=== PATIENT | female | born 1985 | race Caucasian/White ===

== ENCOUNTER → 2019-08-01 12:30 | Outpatient (CLI) | payer SELFPAY ==
[2019-08-01 15:19] LABS: Chlamydia Trachomatis by PCR Negative (Negative); Neisserai gonorrhoeae by PCR Negative (Negative); Probe Check PASS; Sample Adequacy Control PASS; Specimen Processing Control PASS
== END ==
PROVIDERS: Family Provider Obstetrics & Gynecology; PCP Obstetrics & Gynecology; Visit Provider Advanced Practice Midwife
DX: Z11.3 Encounter for screening for infections with a predominantly sexual mode of transmission (principal); Z32.01 Encounter for pregnancy test, result positive
CPT/HCPCS: 87491; 87591

== ENCOUNTER → 2019-08-17 11:36 | Outpatient (CLI) | payer SELFPAY ==
[2016-02-15 15:44] VITALS: BMI 22.0
[2019-08-17 12:39] LABS: Absolute Neutrophil Count 3.6 X10^3/uL (2.0-7.7); Basophil# 0.03 X10^3/uL; Basophil% 0.6 % (0-1); Eosinophil# 0.05 X10^3/uL; Hematocrit 36.7 % (37-47); Hemoglobin 12.3 g/dL (12.0-15.0); Lymphocyte % 21.6 % (19-41); Mean Corp Hgb Conc 33.5 g/dL (32-36); Mean Corpuscular Hgb 30.7 pg (27.0-32.0); Mean Corpuscular Volume 91.5 fL (81-99); Monocyte# 0.34 X10^3/uL; Monocyte% 6.7 % (0-10); NRBC Flagged by Analyzer 0 % (0-5); Neutrophil # 3.56 X10^3/uL (2.7-7.7); Neutrophil % 69.9 % (47-70); Platelet Count 148 K/mm3 (150-450); RBC Distribution Width CV 13.5 % (11.6-14.6); RBC Distribution Width SD 45.8 fl (35.1-43.9); Red Blood Count 4.01 M/mm3 (4.2-5.4); White Blood Count 5.1 K/mm3 (4.4-11.0)
[2019-08-17 12:56] LABS: Thyroid Stim Hormone (TSH) 1.72 uIU/mL (0.358-3.74)
[2019-08-17 13:35] LABS: HIV - WCH Non-Reactive (Nonreactive); Hepatitis B Surface Antigen Non-Reactive (Nonreactive); Hepatitis C Antibody Non-Reactive (Nonreactive); Rubella IgG 71.1 IU/mL
[2019-08-17 17:16] LABS: Color, Urine Straw (Yellow); Glucose, Dipstick Normal (Normal); Ketone-Dipstick Negative (Negative); Leukocyte Esterase-Dipstick Negative /ul (Negative); Nitrite-Dipstick Negative (Negative); Occult Blood-Urine Negative /ul (Negative); Protein-Dipstick Negative (Negative); Specific Gravity, Urine 1.005 (1.002-1.030); Urine Bilirubin Dipstick Negative (Negative); Urine Clarity Clear (Clear); Urine Urobilinogen Normal (Normal)
[2019-08-24 02:20] LABS: Prenatal RPR NONREACTIVE (NONREACTIVE)
== END ==
PROVIDERS: Family Provider Obstetrics & Gynecology; PCP Obstetrics & Gynecology; Referring Provider Advanced Practice Midwife; Visit Provider Advanced Practice Midwife
DX: Z34.81 Encounter for supervision of other normal pregnancy, first trimester (principal)
CPT/HCPCS: 36415; 81002; 84443; 85025; 86703; 86762; 86803; 87340

== ENCOUNTER → 2020-01-30 | Outpatient (CLI) | payer SELFPAY ==
[2016-02-15 15:44] VITALS: BMI 22.0
[2020-01-30 17:43] LABS: Hematocrit 30.1 % (37-47); Mean Corp Hgb Conc 33.2 g/dL (32-36); Mean Corpuscular Hgb 31.3 pg (27.0-32.0); Mean Corpuscular Volume 94.1 fL (81-99); Platelet Count 139 K/mm3 (150-450); RBC Distribution Width CV 13.2 % (11.6-14.6); RBC Distribution Width SD 45.2 fl (35.1-43.9); White Blood Count 5.6 K/mm3 (4.4-11.0)
== END | disposition home or self-care (01) ==
PROVIDERS: Visit Provider Obstetrics & Gynecology
DX: Z34.83 Encounter for supervision of other normal pregnancy, third trimester (principal)
CPT/HCPCS: 85027

== ENCOUNTER → 2020-03-01 13:50 | Outpatient (CLI) | payer SELFPAY ==
[2016-02-15 15:44] VITALS: BMI 22.0
== END ==
PROVIDERS: Referring Provider Obstetrics & Gynecology; Visit Provider Obstetrics & Gynecology
DX: Z36.85 Encounter for antenatal screening for Streptococcus B (principal)
CPT/HCPCS: 87081

== ENCOUNTER → 2020-03-15 14:23 | Outpatient (CLI) | payer SELFPAY | PROVIDERS: Visit Provider Obstetrics & Gynecology | DX: Z11.59 Encounter for screening for other viral diseases (principal) | CPT/HCPCS: 87635; G2023; U0003 ==

== ENCOUNTER 2020-03-28 01:00 | Inpatient (IN) | payer SELFPAY ==
[2020-03-28] VITALS (24 sets, daily range): BP systolic 103–131; BP diastolic 51–77; PULSE 53–77; RESP 16; TEMP 36.7–38.3; O2SAT 99; BMI 21.6
[2020-03-28] MEDS: Lactated Ringers 1,000 ML 50 ML IV (01:25)
[2020-03-28 01:52] LABS: Absolute Lymphocyte Count 1.35 X10^3/uL (0.83-4.51); Absolute Neutrophil Count 6.4 X10^3/uL (2.0-7.7); Basophil# 0.03 X10^3/uL; Basophil% 0.4 % (0-1); Eosinophil# 0.04 X10^3/uL; Eosinophils% 0.5 % (0-5); Hematocrit 35.2 % (37-47); Hemoglobin 11.1 g/dL (12.0-15.0); Lymphocyte # 1.35 X10^3/ul (4.0); Lymphocyte % 15.8 % (19-41); Mean Corp Hgb Conc 31.5 g/dL (32-36); Mean Corpuscular Hgb 29.3 pg (27.0-32.0); Mean Corpuscular Volume 92.9 fL (81-99); Mean Platelet Vol. 10.6 fl (6.2-12.0); Monocyte# 0.68 X10^3/uL; NRBC Flagged by Analyzer 0 % (0-5); Neutrophil # 6.42 X10^3/uL (2.7-7.7); Neutrophil % 75.1 % (47-70); Platelet Count 110 K/mm3 (150-450); RBC Distribution Width CV 13.7 % (11.6-14.6); RBC Distribution Width SD 46.5 fl (35.1-43.9); Red Blood Count 3.79 M/mm3 (4.2-5.4); White Blood Count 8.5 K/mm3 (4.4-11.0)
--- NOTE | 2020-03-28 02:00 | PCM.HP.OB ---
- Problem List (1) 40 weeks gestation of Status: Acute History Date of Admission: 12/28/12 Final DAI: 03/22/20 Final DAI Source: US <20 weeks Gestational age: 40 Weeks and 6 Days History of this : This is a 34 year-old, G [4], P [3], at 40 weeks gestational age. Allergies No Known Allergies Allergy (Verified 03/28/20 01:34) Home Medications: Home Medications Folic Acid 0.8 mg PO DAILY 11/30/14 Vits [Prenatabs FA ] 1 tablet PO DAILY 11/30/14 Smoking Status: Never smoker Alcohol: None Number of Fetus(es): 1 NST - FHR Rate Baby A Baseline: 130 Variability:: Moderate Accelerations:: 15 x 15 Decelerations:: None NST Reactive:: Yes FHR Category:: Category I Uterine Activity:: 2-5m History Past Pregnancies: PRIOR DELIVERY HISTORY DEL DATE GEST LAB WT LB WT OZ TYPE ANES LABOR TX 13 Nov 15 39 18 7 13 Vag Local No 13 Dec 13 40 2 7 10 Vag None No 17 Nov 28 41 14 7 13 Vag Epidural No Labs: Mom's Problem List Problem Status Onset Code 40 weeks gestation of Acute Z3A.40 Mom's Labs & Results 03/28/20 03/28/20 03/28/20 01:38 01:38 02:09 WBC 8.5 RBC 3.79 L Hgb 11.1 L Hct 35.2 L MCV 92.9 MCH 29.3 MCHC 31.5 L RDW Std Deviation 46.5 H RDW Coeff of Esthela 13.7 Plt Count 110 L MPV 10.6 Immature Gran % (Auto) 0.200 Neut % (Auto) 75.1 H Lymph % (Auto) 15.8 L Montague % (Auto) 8.0 Eos % (Auto) 0.5 Baso % (Auto) 0.4 Absolute Neuts (auto) 6.4 Absolute Lymphs (auto) 1.35 Nucleated RBC % 0 COVID-19 ([facility]) Not Detected Blood Type O POSITIVE Antibody Screen NEGATIVE Course Did the patient receive Yes care? Labs Blood Type: O RH: POSITIVE RPR/VDRL/Syphilis Nonreactive Rubella status Immune HbSAg Negative Date Done: 08/17/19 Chlamydia Negative Gonorrhea Negative HIV/AIDS Non-Reactive Group B Strep: Negative Current Obstetrical History Gestational Diabetes No Incompetent Cervix No Infertility No IUGR No Macrosomia No Hypertension/Pre-eclampsia No Placenta Previa/Abruption No PTL/PROM No Uterine anomaly No Oligohydramnios No: low side of normal Polyhydramnios No Multiple gestation No Past Medical History Asthma Yes: uses essential oils Diabetes No Hypertension No Heart disease No Mitral valve prolapse No Neurologic/Seizure disorder/ No Migraines Kidney disease No Liver disease No Varicosities Yes Clotting disorders/Hx of DVT No Thyroid Dysfunction No Other medical diseases No Psychiatric disorders No Major trauma No Abnormal PAP smear No Sleep apnea No Mammogram in the last 2 years No Social History Marital Status: Alleged father Kurtis Laguna Hx Smoking No Smoking Status Never smoker How long have you used pt denies substances (years)? Expected Infant Delivery Method: Spontaneous Vaginal Number of Visits: 12 Review of Systems Constitutional: Denies: Chills, Fever, Weight Change HEENT: Denies: Head Aches, Sinus Congestion, Sinus Drainage Cardiovascular: Denies: Chest Pain, Palpitations Respiratory: Denies: Cough, Shortness of breath at rest, Sputum production Gastrointestinal: Denies: Abdominal Pain, Nausea, Vomiting Genitourinary: Denies: Dysuria Musculoskeletal: Denies: Joint Pain, Joint Tenderness Skin: Denies: Rash, Wounds Neurological: Denies: Numbness, Tingling, Focal weakness Psychiatric: Denies: Anxiety, Depression, Homicidal Ideations, Suicidal Ideations Hematologic/ Lymphatic: Denies: Easy Bruising, Easy Bleeding Physical Exam Vitals: Vital Signs Temp Pulse BP Pulse Ox 98.9 F 60 117/59 L 99 03/28/20 03:26 03/28/20 03:26 03/28/20 03:26 03/28/20 02:19 General: Alert, Oriented x3, No apparent distress HEENT: Atraumatic, Normocephalic. 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 Negative for: Vulvar lesions Estimated gestational size: Appropriate for gestational size Presentation: Cephalic Cervix Dilation (cm): 7 Station: -2 Effacement (%): 80 Assessment/Plan All Active Problems 40 weeks gestation of (Acute) This is a 34 year-old, G [4], P [3], at 40 weeks gestational age. NST Category I SVE 7/80/-2 UC 2-5m Admit for active Labor Expect
[2020-03-28] MEDS: Oxytocin 30 units/NS 500 ml 30 UNITS/500 ML IV.SOLN 334 UNITS IV (04:25)
[2020-03-28] MEDS: Methylergonovine 0.2 MG/ML Ampul IM (04:26)
[2020-03-28] MEDS: miSOPROStol 200 MCG Tablet 1000 MCG RECTAL (04:32)
--- NOTE | 2020-03-28 04:42 | PCM.OPRPT ---
Problem List (1) 40 weeks gestation of Status: Acute Vaginal Delivery Maternal Presentation: Active Labor Amniotic Membrane Rupture Type: Artificial Rupture of Membrane time: 032 Amniotic Fluid Description: Clear Final DAI: 03/22/20 Gestational age: 40 Weeks and 6 Days Date of Procedure: 03/28/20 Pre-Operative Diagnosis: labor Post-Operative Diagnosis: S/P Surgery/ Procedure Performed: Spontaneous Vaginal Delivery Type of Anesthesia: None Description of Procedure: Patient complete /+2 at 0830. Patient pushed well for one hour to deliver head in OA over swollen vaginal tissue. Loose nuchal x1 reduced at perineum. Shoulders delivered spontaneously followed by body.The male was placed on the maternal abdomen and further attended by nursery personnel with bulb suction and stimulation. The cord was doubly clamped then cut by FOB under CNM supervision at approximately 3 minutes of life. Cod blood collected. IV Pitocin started per protocol. With gentle cord traction spontaneous delivery of placenta. Upon inspection placenta noted to appear intact with a 3 vessel cord. Fundal massage given, noted to be firm,U/3 and midline. With blood loss, IM Methergine and 1000mcg of Cytotec given rectal. First degree perineal laceration noted. Repaired with 3.0 vicryl with a single stitch. EBL 450. Sponge count correct x2. Apgars 8/9. Presentation: Vertex, ROMANA Placental Delivery Description: Spontaneous Cord Vessel Description: 3 Vessels Cord Entanglement: Around neck x 1, loose Infant A gender: Male (1 minute): 8 (5 minute): 9 Episiotomy Description: None Laceration: 1st degree Medications given after delivery: IV Pitocin, IM Methergin, - - Cytotec
[2020-03-28] MEDS: 0.9% Saline Lock 10 ML Syringe IV (06:04)
[2020-03-28 06:30] LABS: Hematocrit 34.8 % (37-47); Hemoglobin 11.3 g/dL (12.0-15.0); Mean Corp Hgb Conc 32.5 g/dL (32-36); Mean Corpuscular Hgb 29.5 pg (27.0-32.0); Mean Corpuscular Volume 90.9 fL (81-99); Mean Platelet Vol. 10.8 fl (6.2-12.0); Platelet Count 102 K/mm3 (150-450); RBC Distribution Width CV 13.6 % (11.6-14.6); RBC Distribution Width SD 45.2 fl (35.1-43.9); Red Blood Count 3.83 M/mm3 (4.2-5.4); White Blood Count 10.5 K/mm3 (4.4-11.0)
[2020-03-29 04:20] VITALS: BP 106/54; PULSE 58; RESP 16; TEMP 36.7
[2020-03-29 05:42] LABS: Hematocrit 30.4 % (37-47); Hemoglobin 9.6 g/dL (12.0-15.0)
--- NOTE | 2020-03-29 07:32 | PCM.PN.OB ---
Patient Problems: Active and Suspected Problems 40 weeks gestation of (Acute) Subjective: Patient without complaints. Minimal vaginal bleeding. Breast-feeding going well. Wants to go home today. - Physical Exam Vitals/I&O's: Vital Signs Temp Pulse Resp BP Pulse Ox 98.6 F 57 L 16 105/57 L 99 03/28/20 23:45 03/28/20 23:45 03/28/20 23:45 03/28/20 23:45 03/28/20 02:19 Oxygen Delivery Method Room Air Weight: 154 lb 12.232 oz Body Mass Index (BMI) 21.6 Intake and Output for Last 24 Hours 03/27/20 03/28/20 03/29/20 23:59 23:59 23:59 Intake Total 1670.83 / 1670.83 Output Total 350 / 350 Balance 1320.83 / 1320.83 Laboratory Results 03/29/20 05:30: Hgb 9.6 L, Hct 30.4 L Current Medications Acetaminophen (Tylenol) 1,000 mg PO Q8H PRN PRN PRN Reason: Pain Score 1-3/10 Bisacodyl (Dulcolax) 10 mg RECTAL UD PRN PRN Reason: If no BM Hydrocortisone (Hytone) 1 applic TOPICAL TID PRN PRN; Protocol PRN Reason: Discomfort Ibuprofen (Motrin) 600 mg PO Q6H PRN PRN PRN Reason: Pain Score 1-3/10 Methylergonovine Maleate (Methergine) 0.2 mg IM X1 PRN PRN Reason: Excess bleeding/uterine atony Last Admin: 03/28/20 04:26 Dose: 0.2 mg Documented by: Ondansetron HCl (Zofran) 4 mg IV Q4H PRN PRN PRN Reason: Nausea Senna/Docusate Sodium (Senokot-S, Danay-Colace) 1 - 2 tablet PO DAILY PRN PRN PRN Reason: Constipation Simethicone (Mylicon) 80 mg PO PCHS PRN PRN Reason: Indigestion/Stomach pain Sodium Chloride () 5 - 15 ml IV UD PRN PRN Reason: SALINE FLUSH Last Admin: 03/28/20 06:04 Dose: 10 ml Documented by: Throat Lozenges (Dermoplast (Sp)) 1 applic TOPICAL 4X/DAY PRN PRN; Protocol PRN Reason: Pain/Inflammation Medical Necessity - Tobacco Use Smoking Status: Never smoker Assessment/Plan All Active Problems 40 weeks gestation of (Acute) Doing well day #1 status post routine spontaneous vaginal delivery. Will release to home with routine instructions.
--- NOTE | 2020-03-29 07:33 | DCINST_ITS ---
Discharge Diet: No Restrictions Discharge Activity: May Shower, May Take a Tub Bath May resume sexual activity in: 4-6 weeks Additional Activity Instructions:: Nothing in the vagina for 4-6 weeks. You may return to work/school in 6 weeks. Call your doctor if you observe: Inability to urinate, Inability to have a bowel movement, Using more than one pad per hour Additional Instructions: If you experience any of the following, contact your healthcare provider. * Bleeding that soaks a pad every hour for 2 hours * Fever 100.4 or higher * Unrelieved incision or abdominal pain * Swelling, redness, discharge or bleeding from your incision or episiotomy site * Your incision begins to separate * Problems urinating (including inability to urinate or burning while urinating). * Visual changes * Severe headache * Flu-like symptoms * Pain or redness in one of both of your breasts * Pain, warmth, tenderness or swelling in your legs, especially the calf area * Frequent nausea and vomiting * Symptoms of depression or anxiety If you experience any of the following, call 911 or go to the nearest Emergency Room. * Chest pain * Problems breathing * Seizure activity * Partial or complete paralysis of a body part, slurred speech, weakness or drooping of the face, or a sudden inability to walk or hold your balance Allergies/Adverse Reactions: Allergies No Known Allergies Allergy (Verified 03/28/20 01:34) Medications to take at Discharge Folic Acid 0.8 mg PO DAILY 11/30/14 Vits [Prenatabs FA ] 1 tablet PO DAILY 11/30/14 Please Follow Up With: Elke Millard MD - [phone] When: Call to make an appointment with your doctor in 6 weeks. Test Results: Test results from this visit will be discussed in further detail at your follow- up appointment, if applicable.
--- NOTE | 2020-03-29 07:33 | PCM.DCVAG ---
Discharge Diet: No Restrictions Discharge Activity: May Shower, May Take a Tub Bath May resume sexual activity in: 4-6 weeks Additional Activity Instructions:: Nothing in the vagina for 4-6 weeks. You may return to work/school in 6 weeks. Call your doctor if you observe: Inability to urinate, Inability to have a bowel movement, Using more than one pad per hour Additional Instructions: If you experience any of the following, contact your healthcare provider. Bleeding that soaks a pad every hour for 2 hours Fever 100.4 or higher Unrelieved incision or abdominal pain Swelling, redness, discharge or bleeding from your incision or episiotomy site Your incision begins to separate Problems urinating (including inability to urinate or burning while urinating). Visual changes Severe headache Flu-like symptoms Pain or redness in one of both of your breasts Pain, warmth, tenderness or swelling in your legs, especially the calf area Frequent nausea and vomiting Symptoms of depression or anxiety If you experience any of the following, call 911 or go to the nearest Emergency Room. Chest pain Problems breathing Seizure activity Partial or complete paralysis of a body part, slurred speech, weakness or drooping of the face, or a sudden inability to walk or hold your balance Allergies/Adverse Reactions: Allergies No Known Allergies Allergy (Verified 03/28/20 01:34) Medications to take at Discharge Folic Acid 0.8 mg PO DAILY 11/30/14 Vits [Prenatabs FA ] 1 tablet PO DAILY 11/30/14 Please Follow Up With: Elke Millard MD - [phone] When: Call to make an appointment with your doctor in 6 weeks. Test Results: Test results from this visit will be discussed in further detail at your follow-up appointment, if applicable.
[2020-03-29 08:05] VITALS: BP 106/58; PULSE 65; RESP 14; TEMP 36.7
== END 2020-03-29 12:00 | disposition home or self-care (01) | DRG 807 ==
PROVIDERS: Obstetrics & Gynecology; Admitting Provider Obstetrics & Gynecology; Visit Provider Obstetrics & Gynecology
DX: O99.52 Diseases of the respiratory system complicating childbirth (principal); J45.909 Unspecified asthma, uncomplicated; O69.81X0 Labor and delivery complicated by cord around neck, without compression, not applicable or unspecified; O70.0 First degree perineal laceration during delivery; Z3A.40 40 weeks gestation of pregnancy; Z37.0 Single live birth
CPT/HCPCS: 59025; 59050; 85014; 85018; 85025; 85027; 86850; 86900; 86901; 87635; 99218; G2023; J7120; A4216; G0378; U0003

== ENCOUNTER → 2020-05-15 | Outpatient (CLI) | payer SELFPAY ==
[2020-03-28 01:25] VITALS: BMI 21.6
== END | disposition home or self-care (01) ==
PROVIDERS: Referring Provider Obstetrics & Gynecology; Visit Provider Obstetrics & Gynecology
DX: Z12.4 Encounter for screening for malignant neoplasm of cervix (principal)
CPT/HCPCS: 88175; G0145

== ENCOUNTER → 2020-08-06 14:18 | Outpatient (CLI) | payer SELFPAY ==
[2020-03-28 01:25] VITALS: BMI 21.6
[2020-08-12 10:00] LABS: HPV Reflexed? NOT INDICATED
== END ==
PROVIDERS: Visit Provider Obstetrics & Gynecology
DX: R87.615 Unsatisfactory cytologic smear of cervix (principal)
CPT/HCPCS: 88175; G0145

== ENCOUNTER → 2023-02-23 | Outpatient (CLI) | payer SELFPAY ==
--- NOTE | 2023-02-23 08:59 | BI_ITS ---
MAMMOGRAPHY - BILATERAL DIAGNOSTIC REASON FOR EXAM: Female, 37 years old. One-week history of right breast lump. History of remote left breast infection. PERTINENT HISTORY: Non-contributory. TECHNIQUE: Digital bilateral breast gavin (3D mammographic acquisition) in the CC and MLO projections. 2-D mediolateral oblique (MLO) and craniocaudad (CC) views of both breasts were obtained. CAD: Full Field Digital Mammography with Computer Added Detection was performed. COMPARISON: None. Baseline examination. FINDINGS: Breast Composition: The breasts are extremely dense, which lowers the sensitivity of mammography. There are no dominant masses or suspicious calcifications. No other significant abnormalities are identified. BI/DIAG MAMM W/CAD, BILAT IMPRESSION: Negative diagnostic mammogram. With the patient''s history of a palpable lump in the retroareolar region of the right breast, correlation with ultrasound is recommended. ASSESSMENT CATEGORY: BIRADS Category 0: Incomplete. Need additional imaging evaluation. A letter regarding these results will be sent to the patient by the facility within 30 days. Approximately 10% of breast cancers are not detected by mammography. A normal mammogram should not delay biopsy of a clinically suspicious abnormality. Electronically Signed: Jassi Lopez MD at 9:46 EDT ,
--- NOTE | 2023-02-23 08:59 | US_ITS ---
STUDY: ULTRASOUND BREAST - RIGHT REASON FOR EXAM: Female, 37 years old. Right retroareolar breast lump. TECHNIQUE: Axial and longitudinal images of the RIGHT breast were performed with a high resolution ultrasound transducer. # OF IMAGES: 31 COMPARISON: Comparison is made with prior mammogram done earlier in the day. FINDINGS: RIGHT Breast: The palpable abnormality corresponds to a 1.1 cm x 1.3 cm x 1 cm well-defined slightly hypoechoic nodular density at the 6 to 7:00 position of the breast in the region of the areola. This most likely represents a fibroadenoma although tissue diagnosis is recommended. US/Breast Limited Unilateral IMPRESSION: Abnormality corresponds to a 1.1 cm x 1.3 cm x 1 cm well-defined hypoechoic solid nodule. Biopsy recommended. ASSESSMENT CATEGORY: BIRADS Category 4: Suspicious - Biopsy Should Be Considered. A letter regarding these results will be sent to the patient by the facility within 30 days. Electronically Signed: Jassi Lopez MD at 15:13 EDT ,
== END | disposition home or self-care (01) ==
PROVIDERS: Referring Provider Obstetrics & Gynecology; Visit Provider Obstetrics & Gynecology
DX: N63.0 Unspecified lump in unspecified breast (principal)
CPT/HCPCS: 76642; 77062; 77066; G0279

== ENCOUNTER 2023-03-05 08:53 | Day surgery (SDC) | payer SELFPAY ==
--- NOTE | 2023-03-05 | IMM_PTH ---
PATIENT: REGINA MCKENZIE LOC: [facility] [place] U#:[id number] AGE/SX: 37/F ROOM: RE03/05/[address]: Dr. Ten Leahy MD : 1985 BED: DIS: 03/05/2023 SPEC #: [id number] RECD: 03/08/23 12:08 STATUS: SHLOMO REMaría #: [id number] AMANDA: 03/05/23 00:[address]: Ten Leahy DEPT: IMMUNOHISTOCHEMISTRY RECD BY: Jane Avila ENTERED: 03/08/23 12:09 SP TYPE: IMMUNO OTHR DR: No Primary Care Phys Tissues: Right breast, NOS Procedures: CK8 (initial) SMA (add) CALPONIN-1 (add) 34BE12 (add) P40 (add) PHYSICIAN & INSTITUTION [place] [phone] SPECIMEN INFORMATION: Tissue Source: Right breast mass Clinical Info: Right breast lesion Specimen Number: [id number] #3 CPT code: 48847, 97526 x4 METHODOLOGY: Deparaffinized sections of prefer/formalin-fixed tissue or PAP/DQ stained slides are incubated with monoclonal/polyclonal antibodies/oligonucleotide probes. Localization is made via biotin free immunoperoxidase method. Appropriate controls are performed and reacted as expected. Results on target cell population are indicated in the following table: RESULTS: ANTIBODY / CLONE RESULT Block 3 CK8 ([id number]) positive 34BE12 (34BE12) positive Calponin-1 (NU662C) positive Actin (1A4) positive P40 (BC28) positive These tests were developed and their performance characteristics determined by [facility]. They may not have been cleared or approved by the U.S. Food and Drug Administration. The FDA has determined that such clearance or approval is not necessary. The above immunohistochemical/dualISH markers are ordered and reviewed by the Pathologist. INTERPRETATION: Right breast mass, excisional biopsy: Benign breast tissue. AM:blair 03/09/2023
[2023-03-05] MEDS: Lactated Ringers 1,000 ML 15 ML IV (09:05)
[2023-03-05 09:21] LABS: Internal QC Validated? YES +Cl - CLEAR BKGD; Pregnancy, Urine Negative Negative
[2023-03-05 09:22] VITALS: BP 109/57; PULSE 69; RESP 16; TEMP 36.6; O2SAT 100; BMI 23.3
--- NOTE | 2023-03-05 10:07 | PCM.HP.BLA ---
History and Physical Date of Admission: 03/05/23 Intake Vital Signs ? 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 Ten Leahy MD) Injury of breast, left, superficial, infected Seasonal allergies Surgical History?(Updated 02/26/23 @ 08:47 by Alena Reis) S/P bilateral foot surgery Family History?(Updated 02/26/23 @ 08:50 by Alena Reis) Son Autoimmune disease ?? ? fructose malabsorptionDaughter Autoimmune disease ?? ? fructose malabsorptionGrandmother Cancer ?? ? pancreatic in 80'sGrandfather Cancer ?? ? leukemia Social History?(Updated 02/26/23 @ 08:50 by Alena Reis) Smoking Status:? Never smoker alcohol intake:? never HPI HPI HPI: Patient is a 37-year-old female here with right breast lesion.? It is behind the right nipple.? She had not noticed this but she had mammogram of both breasts and this was found and ultrasound showed a BI-RADS 4 lesion behind the nipple on the right side.? She does not notice any pain in the area or nipple discharge.? She has no family history of breast cancer. ROS General General: No weight change, appetite, fatigue, colon cancer, breast cancer or weakness HEENT HEENT: No difficulty swallowing, eye injury, eye surgery, swollen glands or hoarseness Endo Endocrine: No thyroid disease, diabetes mellitus, thyroid cancer, Hair loss, heat intolerance or cold intolerance Skin Skin: No rash or changing moles Breast Breast: No left breast lump, right breast lump, nipple discharge, breast pain, abnormal mammogram, abnormal US or breast enlargement Musc Musculoskeletal: No back problems, arthritis, rheumatoid arthritis, gout or joint pain Cardio Cardiovascular: No murmur, pacemaker, heart disease, atrial fibrillation, high blood pressure, heart attack, heart stent, palpitations, shortness of breat with exertion or chest pain Psych Psychiatric: No depression, anxiety or hearing voices Resp Respiratory: No shortness of breath, No sleep apnea, No cough, No COPD, Yes asthma, No emphysema and No wheezing Gastro Gastrointestinal: No abdominal pain, No nausea or vomiting, No diarrhea, No constipation, No blood in stool, No acid reflux, No hemorrhoids, No ulcers, No gallbladder problem and No black,tarry stools Haris Hematologic: No blood thinners, No blood disorders, No bleeding, No anemia and No blood clots Neuro Neurologic: No system reviewed and no additional complaints, except as documented, No as per HPI, No abnormal gait, No abnormal hearing, No abnormal movements, No abnormal speech, No behavioral changes, No burning sensations, No confusion, No convulsions, No disequilibrium, No dizziness, No localized weakness, No frequent falls, No headache(s), No lack of coordination, No loss of vision, No memory loss, No numbness, No other visual disturbances, No radicular pain, No restless legs, No sensory deficit, No syncope, No tingling, No tremor(s), No weakness and No other Exam Const General: cooperative Orientation: alert and oriented x3 [facility] Head: normal to inspection Neck Neck: normal visual inspection and full ROM Chest Chest palpation & inspection: normal inspection of the chest Breast Palpation: Yes breast mass lrb: Right Resp Effort & Inspection: normal respiratory effort Auscultation: clear to auscultation bilaterally Cardio Rate: regular rate Rhythm: regular rhythm GI Inspection: non-distended Palpation: soft and nontender Skin General: no rashes or lesions noted Neuro General: patient alert and patient oriented x3 Extrem General: full ROM Psych Appearance: grossly normal Mental Status: mental status grossly normal Assessment and Plan Assessment and Plan (1) Breast mass, right: ?Status:?Acute ?Qualifiers: ?Breast mass location:?subareolar? Qualified Code(s):?N63.41 - Unspecified lump in right breast, subareolar ?Plan: Patient has a very small mass behind the right nipple.? This was given a BI-RADS score 4.? It is very superficial I recommended excisional biopsy over needle biopsy and the patient is in agreement.? I discussed the risks of bleeding and infection and need for further surgery if this is cancerous.? Patient understands the risks and will schedule excisional biopsy in the operating room. Ten Leahy MD Pager: [facility] [address] [place] [address], [address] [place] [address] Office: I have examined the patient and the H&P has been reviewed. There are no clinical changes since date of exam.
[2023-03-05] MEDS: Cefazolin 2 GM in 0.9% Normal Saline 100 ML IV (10:20)
[2023-03-05] MEDS: Bupivacaine 0.5% PF 10 ML VIAL (10:26)
--- NOTE | 2023-03-05 10:30 | BR_PTH ---
PATIENT: REGINA MCKENZIE [place] [facility] [place][id number] AGE/SX: 37/F ROOM: RE03/05/[address]: Dr. Ten Leahy MD : 1985 BED: DIS: 03/05/2023 SPEC #: [id number] RECD: 03/05/23 11:25 STATUS: SHLOMO DEVANG #: [id number] AMANDA: 03/05/23 10:[address]: Ten Leahy DEPT: SURGICAL PATHOLOGY RECD BY: Adalgisa Gonzalez ENTERED: 03/05/23 11:34 SP TYPE: MAMOPLASTY OTHR DR: No Primary Care Phys Tissues: Right breast, NOS Procedures: Surgery Specimen Level IV HEADER OPERATION: Excisional breast biopsy PRE-OP DIAGNOSIS: Right breast lesion TISSUE SUBMITTED: Right breast mass MICROSCOPIC DIAGNOSIS Right breast mass, excisional biopsy: Nonproliferative fibrocystic change. Focal mild chronic inflammation. No evidence of malignancy. See comment. AM:blair 03/08/2023 COMMENT Immunohistochemistry ([id number]) supports the above diagnosis. Case has been reviewed in consultation with Dr. Mosquera who concurs with the above diagnosis. IDC:SJ MICROSCOPIC DESCRIPTION Slides are reviewed. GROSS DESCRIPTION Received in fixative is one container labeled with the patient's name and designated right breast mass. The specimen consists of a piece of fibroadipose tissue measuring 3.0 x 2.0 x 1.5 cm. A focal area also shows a brownish, turbid fluid at one edge of the specimen. The specimen is inked and reveals a cyst filled with brownish, turbid material measuring 0.7 cm in greatest dimension. Sections reveal an oriented piece of raymundo-yellow fibroadipose tissue. The entire specimen is submitted in five cassettes from one end to another end. / ANNA:blair 03/05/2023 TC:3 CPT: 22059
[2023-03-05 10:45] VITALS: BP 105/80; BP 109/57; PULSE 66; RESP 16; TEMP 37; O2SAT 100
--- NOTE | 2023-03-05 10:49 | PCM.OPRPT ---
Report of Operation Date of Procedure: 03/05/23 Pre-Operative Diagnosis: Right breast mass Post-Operative Diagnosis: Same Surgery/Procedure Performed:: Excisional biopsy right breast mass Specimen's removed: Right breast mass Description of Procedure: Patient was brought back to the operating room and MAC anesthesia was induced. The right breast was prepped and draped in the usual sterile fashion. A curvilinear incision was marked at the areolar border on the lateral edge. Area was injected with local anesthetic and then incised with a scalpel. Electrocautery was used to maintain hemostasis and dissect down to the mass. It was palpable. It was dissected free using electrocautery. Cavity was irrigated and hemostasis was once again obtained using electrocautery. The cavity was irrigated and suctioned dry and there was good hemostasis. The incision was closed with interrupted 3-0 Vicryls and a running 4-0 Monocryl. Dermabond glue was applied. Patient was awoken and taken to PACU in stable condition. Admit VTE Documentation VTE Mechan Device Prophylaxis: SCD's
[2023-03-05 10:50] VITALS: BP 109/57; BP 109/70; PULSE 62; RESP 16; O2SAT 99
--- NOTE | 2023-03-05 10:52 | DCINST_ITS ---
Discharge Instructions Procedure Breast Surgery Diet Discharge Diet: No restrictions Activity Discharge Activity: May Drive and May Shower Dressing / Incision Call your doctor if your incision/area has: Continuous Slow Oozing, Sudden Increased Bleeding, Increased Pain/ Swelling, Increased Redness, Foul Smelling Discharge and Swelling at the incision site Call your doctor if you observe: Fever of 101 or Higher Suture Line Care: Avoid Pulling/Pushing and Avoid Pinching/Bending Cleanse incision/area with: Soap & Water Follow Up Care Please Follow Up With: Ten Leahy MD When: Please call to schedule 2 week follow up appointment. [phone] Test Results: Test results from this visit will be discussed in further detail at your follow- up appointment, if applicable. Discharge Plan Admission Attending Provider: Ten Leahy Primary Care Provider: Care PhysicianDayaan Primary Instructions Additional Instructions / Restrictions: Ibuprofen and Tylenol for pain Discharge Orders/Prescriptions Prescriptions: No Action selenium 100 mcg tablet 100 mcg PO DAILY Folic D3 94.38 mcg(3,775 unit)-1 mg Capsule 1 cap PO DAILY Rx Instructions: give with meal/snack Referrals / Follow Up: Care Physician,Dayana Primary [Primary Care Provider] - Disposition Disposition (needs filled in before D/C Order can be placed): Home, Self Care
[2023-03-05 10:55] VITALS: BP 109/57; BP 112/68; PULSE 61; RESP 16; O2SAT 99
[2023-03-05 11:00] VITALS: BP 106/69; BP 109/57; PULSE 63; RESP 16; TEMP 37; O2SAT 100
[2023-03-05 11:44] VITALS: BP 109/57
== END 2023-03-05 11:49 | disposition home or self-care (01) ==
LOC: SDC 08:56 → AC 08:58
PROVIDERS: Anesthesiology; Referring Provider Surgery; Visit Provider Surgery
PROC: (CPT 19120; principal; 2023-03-05 10:15)
DX: N60.11 Diffuse cystic mastopathy of right breast (principal); N61.1 Abscess of the breast and nipple
CPT/HCPCS: 19120; 00400; 81025; 88305; 88341; 88342; J7120; J2405